=== PATIENT | male | born 1940 | race Caucasian/White ===

== ENCOUNTER 2016-12-14 16:19 | Inpatient (IN) | payer MEDICARE, OTHER ==
[2016-12-14] MEDS ORDERED: ONDANSETRON 4 MG/2ML 2 ML VIAL IV PRN (16:21)
[2016-12-14] MEDS ORDERED: HYDROMORPHONE HCL 1 MG/ML SYRINGE IV PRN ×2 (16:21→16:37)
[2016-12-14] MEDS ORDERED: ACETAMINOPHEN 325 MG TABLET PO PRN (16:21)
[2016-12-14] MEDS ORDERED: MENTHOL/CETYLPYRD 1 EACH LOZENGE PO PRN (16:21)
[2016-12-14] MEDS ORDERED: BLISTEX LIPSTICK 1 EACH TP PRN (16:21)
[2016-12-14] MEDS ORDERED: SODIUM CHLORIDE 0.9% FLUSH 10 ML ONE (16:38)
[2016-12-14] MEDS ORDERED: HYDROMORPHONE HCL 0.5 MG/0.5 ML SYRINGE IV PRN (16:39)
[2016-12-14] MEDS ORDERED: IV START KIT ONE (16:39)
[2016-12-14] MEDS ORDERED: PUMP TUBING ONE (16:42)
[2016-12-14] MEDS: LACTATED RINGERS 1,000 ML IV SCH (16:54)
[2016-12-14] MEDS: METRONIDAZOLE 500 MG/NS 100 ML 500 MG in Premix (D5W) 100 ml 1 EACH IV SCH ×2 (16:56→22:52)
[2016-12-14 18:22] VITALS: BMI 34.8
[2016-12-14] MEDS ORDERED: RIVAROXABAN 10 MG TABLET PO SCH (20:00)
[2016-12-14] MEDS ORDERED: LOVASTATIN 20 MG TABLET PO SCH (20:00)
[2016-12-14] MEDS ORDERED: CLONAZEPAM 1 MG TABLET PO SCH (21:00)
[2016-12-14] MEDS: METOPROLOL SUCCINATE (XL) 50 MG TAB.PRT.SR PO SCH (21:05)
[2016-12-14] MEDS: POTASSIUM CITRATE 10 MEQ PO SCH (21:26)
--- NOTE | 2016-12-15 00:04 | PDOC1 ---
HPI: Date of Admission: 12/14/16 originally seen at 1930 Chief Complaint: Abdominal pain History of Present Illness: 76 y/o M with abdominal discomfort that started Sunday. It continued to get worse over the next several days. He felt almost like a constipation and he felt bloated and pain mostly in the lower abdomen with a slight focus on the left side. He said he was passing mucous and that kept him awake at night, but not really having bowel movements since Sunday. He developed fever today and that is what brought him in. He also hasn't really eaten anything since Sunday because of loss of appetite though he has been keeping water down. He said after he had a large BM today he is feeling much better and the pain is almost gone. PMH: HTN, AAA, afib, depression PSH: pacemaker Medications: please see admission medical record Allergies: SINAI, amiodarone, codeine, hydrocodone FH: reviewed and non contributory SH: denies tobacco, EtOH or illicit drug use. - Review of Systems Denies Chest Pain, Denies Shortness of Breath, Denies Cough, Denies Sputum, Denies Nausea, Denies Vomiting, Denies Diarrhea, Denies Headache H&P Objective GS - Objective Vital Signs Temperature 98.3 F 12/14/16 20:05 Pulse Rate 71 12/14/16 20:05 Respiratory Rate 18 12/14/16 20:05 Blood Pressure 133/71 12/14/16 20:05 O2 Saturation by Pulse Oximetry 94 12/14/16 20:05 Oxygen Delivery Method Room Air Oxygen Flow Rate 0 General: Alert, Oriented x3, Cooperative, No Acute Distress HEENT: Atraumatic, PERRLA, EOMI, Mucous membr. moist/pink Lungs: Clear to Auscultation Bilaterally, Normal Air Movement Cardiovascular: Regular Rate and Rhythm, Normal S1, Normal S2. negative: Murmur Abdomen: Soft, Tenderness (minimal LLQ), Non-Distended, Normal Bowel Sounds Skin: Normal Color, Warm, Dry, Intact Psych/Mental Status: Normal Affect, Normal Mood - Assessment/ Plan (1) Diverticulitis of large intestine with abscess without bleeding Current Visit: No Status: Acute Priority: High Code: K57.20ABX clears Will keep monitoring him for changes repeat labs in the morning if he continues to do well we may be able to discharge him tomorrow after advancing his diet. If his WBC is still quite elevated we will keep him here on ABX until he improves.
[2016-12-15] MEDS: METRONIDAZOLE 500 MG/NS 100 ML 500 MG in Premix (D5W) 100 ml 1 EACH IV SCH ×2 (04:56→11:50)
[2016-12-15 05:47] LABS: HEMATOCRIT 42.4 % (32.0-52.0); HEMOGLOBIN 14.2 gm/l (14.0-18.0); MEAN CELL VOLUME 96.6 fl (80.0-94.0); MEAN CORPUSCULAR HEMOGLOBIN 32.3 pg (27.0-31.0); MEAN CORPUSCULAR HGB CONC 33.5 g/dl (33.0-37.0); RED CELL DISTRIBUTION WIDTH 12.2 % (11.5-14.5)
[2016-12-15 06:13] LABS: ALBUMIN 3.5 gm/dL (3.5-5.7); CALCIUM 9.4 mg/dL (8.6-10.3)
[2016-12-15] MEDS ORDERED: LEVOTHYROXINE SODIUM 137 MCG TABLET PO SCH (07:30)
[2016-12-15] MEDS: LACTATED RINGERS 1,000 ML IV SCH (07:51)
[2016-12-15] MEDS ORDERED: DILTIAZEM HCL CD 240 MG CAPSULE PO SCH (09:00)
[2016-12-15] MEDS ORDERED: FOLIC ACID 1 MG TABLET PO SCH (09:00)
[2016-12-15] MEDS ORDERED: EZETIMIBE 10 MG TABLET PO SCH (09:00)
[2016-12-15] MEDS ORDERED: HYDROCHLOROTHIAZIDE 12.5 MG CAP PO SCH (09:00)
[2016-12-15] MEDS: POTASSIUM CITRATE 10 MEQ PO SCH (09:55)
[2016-12-15] MEDS: METOPROLOL SUCCINATE (XL) 50 MG TAB.PRT.SR PO SCH (09:55)
--- NOTE | 2016-12-15 11:18 | PDOC5 ---
ADMIT DATE: 12/14/16 DISCHARGE DATE: 12/15/16 ADMISSION DIAGNOSES: Perforated diverticulitis with abscess PROCEDURES PERFORMED THIS HOSPITALIZATION: none CONSULTATIONS: none HOSPITAL COURSE: This is a 76 year old M with perforated sigmoid diverticulitis with abscess. He felt better after a large BM. His fever is down. WBC is normal HD#1. He is sent home on oral ABX for 2 weeks and we will reCT him to make sure it is resolved before he goes on his cruise. - Objective Vital Signs Temperature 98.1 F 12/15/16 07:00 Pulse Rate 66 12/15/16 09:53 Respiratory Rate 16 12/15/16 07:00 Blood Pressure 145/67 12/15/16 09:53 O2 Saturation by Pulse Oximetry 97 12/15/16 09:53 Oxygen Delivery Method Room Air Oxygen Flow Rate 0 General: Alert, Oriented x3, Cooperative, No Acute Distress HEENT: Atraumatic, PERRLA, EOMI, Mucous membr. moist/pink Lungs: Clear to Auscultation Bilaterally, Normal Air Movement Cardiovascular: Regular Rate and Rhythm, Normal S1, Normal S2, No Murmur Abdomen: Soft, Non-Distended, Normal Bowel Sounds, No Tenderness Skin: Normal Color, Warm, Dry, Intact, No Rash Psych/Mental Status: Normal Affect, Normal Mood - Discharge Diagnosis (1) Diverticulitis of large intestine with abscess without bleeding Status: AcuteAssessment/Plan: WBC normal advance diet home with ABX - Discharge Plan Condition: Good Disposition: Home Forms: Discharge Instructions Prescriptions: Ciprofloxacin [Cipro] 500 mg PO BID #28 tab Metronidazole [Flagyl] 500 mg PO TID #42 tablet Follow-Up: Yadira Ferro MD [Staff Physician] - 12/19/16 11:15 am Mikayla Sorto MD [Staff Physician] - In 2 weeks
[2016-12-15 13:25] VITALS: BP 111/66
== END 2016-12-15 14:43 | disposition home or self-care (01) | DRG 392 ==
LOC: MS 16:19
PROVIDERS: ADMIT Surgery; ATTEND Surgery
DX: K57.20 Diverticulitis of large intestine with perforation and abscess without bleeding (principal); K57.00 Diverticulitis of small intestine with perforation and abscess without bleeding; I10 Essential (primary) hypertension; I48.91 Unspecified atrial fibrillation; F32.9 Major depressive disorder, single episode, unspecified; Z95.0 Presence of cardiac pacemaker